=== PATIENT | female | born 1985 | race Caucasian/White ===

== ENCOUNTER 2020-10-19 12:58 | Emergency (ER) | payer OTHER ==
[~2020-10-19] VITALS: Ht 152.4 cm; Wt 111.0 kg
[2020-10-19 13:30] VITALS: BP 112/62
[2020-10-19 15:11] LABS: CLARITY URINE CLOUDY (CLEAR); COLOR URINE RED (YELLOW); KETONES URINE NEGATIVE (NEGATIVE); LEUKOCYTE ESTERASE URINE 1+ (NEGATIVE); NITRITE URINE NEGATIVE (NEGATIVE); OCCULT BLOOD URINE 3+ (NEGATIVE); PROTEIN URINE 1+ (NEGATIVE); SPECIFIC GRAVITY URINE 1.032 (1.005-1.030); UROBILINOGEN URINE 0.2 E.U./dL (0.2-1.0)
[2020-10-19 15:42] LABS: BASOPHILS % 0.6 % (0.0-2.0); EOSINOPHILS % 2.5 % (0.0-5.0); HEMATOCRIT. 38.5 % (36.0-48.0); HEMOGLOBIN. 13.3 g/dL (12.0-16.0); LYMPHOCYTES % 24.6 % (20.0-50.0); MEAN CORPUSCULAR HEMOGLOBIN 31.9 pg (28.0-32.0); MEAN CORPUSCULAR VOLUME 92.8 fL (81.0-99.0); MEAN PLATELET VOLUME 9.2 fl (7.4-10.4); MONOCYTES % 5.9 % (2.0-8.0); NEUTROPHILS % 66.4 % (40.0-76.0); PLATELET 203 x1000/uL (130-400); RED BLOOD CELL COUNT 4.15 mill/uL (4.2-5.4); RED CELL DISTRIBUTION WIDTH 13.7 % (11.6-14.6)
[2020-10-19 15:44] LABS: CHLORIDE 103 mEq/L (98-107)
[2020-10-19 16:10] LABS: B-HCG QUANTITATIVE 42145 mIU/mL (<3)
[2020-10-19] MEDS ORDERED: CEPH500C2 MT (16:52)
[2020-10-19] MEDS ORDERED: AMOX-494 MT (16:52)
[2020-10-19] MEDS ORDERED: RHO(D) IMMUNE GLOBULIN 300 MCG/SYR IM ONE (17:15)
== END 2020-10-19 19:08 | disposition home or self-care (01) ==
LOC: ER 12:58
DX: O20.0 Threatened abortion (principal); O23.11 Infections of bladder in pregnancy, first trimester; O16.1 Unspecified maternal hypertension, first trimester; O99.281 Endocrine, nutritional and metabolic diseases complicating pregnancy, first trimester; O24.911 Unspecified diabetes mellitus in pregnancy, first trimester; O26.891 Other specified pregnancy related conditions, first trimester; Z67.21 Type B blood, Rh negative; Z90.49 Acquired absence of other specified parts of digestive tract; Z3A.08 8 weeks gestation of pregnancy
CPT/HCPCS: 36415; 76801; 80048; 81003; 81025; 84702; 85025; 86850; 86900; 90384; 93005; 96372; 99285